=== PATIENT | male | born 1960 | race Caucasian/White ===

== ENCOUNTER 2017-10-14 11:20 | Outpatient (CLI) | payer OTHER | END 2017-10-14 11:21 | disposition home or self-care (01) | LOC: SC 11:20 | PROVIDERS: ATTEND Internal Medicine Pulmonary Disease | DX: G47.30 Sleep apnea, unspecified (principal); G47.10 Hypersomnia, unspecified; G47.8 Other sleep disorders; R06.83 Snoring | CPT/HCPCS: 99203; 99212 ==

== ENCOUNTER 2017-12-02 15:14 | Outpatient (CLI) | payer OTHER | END 2017-12-02 15:15 | disposition home or self-care (01) | LOC: SC 15:14 | PROVIDERS: ATTEND Internal Medicine Pulmonary Disease | DX: G47.33 Obstructive sleep apnea (adult) (pediatric) (principal) | CPT/HCPCS: 99212; 99213 ==

== ENCOUNTER 2018-02-03 08:31 | Outpatient (CLI) | payer OTHER | END 2018-02-03 08:32 | disposition home or self-care (01) | LOC: SC 08:31 | PROVIDERS: ATTEND Nurse Practitioner Family | DX: G47.33 Obstructive sleep apnea (adult) (pediatric) (principal) | CPT/HCPCS: 99212; 99214 ==